=== PATIENT | female | born 1985 | race African-American/Black ===

== ENCOUNTER 2020-11-11 10:00 | Inpatient (IN) ==
[2020-11-11] MEDS ORDERED: BUPIVACAINE SPINAL 0.75% 2 ML AMP SPINAL ONE (10:21)
[2020-11-11] MEDS ORDERED: ONDANSETRON 4 MG/2 ML VIAL ONE (10:21)
[2020-11-11] MEDS ORDERED: PHENYLEPHRINE 1 MG/10 ML SYRINGE IV ONE (10:21)
[2020-11-11] MEDS ORDERED: CITRIC ACID/SODIUM CITRATE 30 ML UDCUP PO ONE (10:37)
[2020-11-11] MEDS ORDERED: FAMOTIDINE 20 MG/2 ML VIAL IV ONE (10:37)
[2020-11-11] MEDS ORDERED: ceFAZolin 3,000 MG in SYRINGE 1 EACH IV ONE (10:37)
[2020-11-11] MEDS ORDERED: OXYTOCIN/LR 20 UNIT/1,000 ML BAG IV ONE ×2 (10:41→13:30)
[2020-11-11] MEDS ORDERED: OXYTOCIN/LR 30 UNIT/1,000 ML BAG IV ONE (10:41)
[2020-11-11] MEDS ORDERED: OXYTOCIN 10 UNIT/ML VIAL IM ONE (10:41)
[2020-11-11] MEDS ORDERED: LACTATED RINGERS 1,000 ML IV SCH ×2 (11:00→13:30)
[2020-11-11 11:11] LABS: Basophils % 0.4 % (0.0-0.8); Eosinophils # 0.1 10*3/uL (0.0-0.87); Eosinophils % 1.2 % (0.00-10.9); Hematocrit 28.7 VOL% (35.7-47.0); Hemoglobin 9.4 GM/DL (12.0-16.0); Immature Granulocytes % 0.4 %; Immature Granulocytes Absolute 0.02 #; Lymphocytes # 1.3 10*3/uL (1.4-4.0); Lymphocytes % 25.7 % (21.3-54.2); Mean Corpuscular HGB Conc 32.8 GM/DL (32-36); Mean Corpuscular Volume 89.7 FL (87-102); Mean Platelet Volume 10.3 FL (9.6-12.0); Neutrophils % 64.3 % (38.7-73.9); Platelet Count 176 T/CUMM (130-400); Red Cell Distribution Width 13.4 % (9.3-17.3); White Blood Count 4.9 T/CUMM (4-12)
[2020-11-11 11:34] LABS: Albumin 2.4 G/DL (3.4-5.0); Bilirubin,Total 0.6 MG/DL (0.20-1.00); Calcium 8.4 MG/DL (8.5-10.1); Osmolality,Calculated 275.5 MOS/KG (273-304); Potassium 3.4 MMOL/L (3.5-5.1); Total Protein 6.6 G/DL (6.4-8.2)
[2020-11-11] MEDS ORDERED: miSOPROStoL 200 MCG TABLET ONE ×2 (12:02→12:07)
[2020-11-11] MEDS ORDERED: CARBOPROST TROMETHAMINE 250 MCG/ML AMP IM ONE ×2 (12:03→12:07)
[2020-11-11] MEDS ORDERED: METHYLERGONOVINE 0.2 MG/1 ML AMP ONE (12:03)
[2020-11-11 12:43] LABS: Cord Arterial Blood HCO3 22.9 MMOL/L; Cord Venous Blood HCO3 22.4 MMOL/L; Cord Venous Blood PCO2 39.8 MMHG; Cord Venous Blood PO2 40.6 MMHG
[2020-11-11] MEDS ORDERED: KETOROLAC 30 MG/1 ML VIAL ONE (12:44)
[2020-11-11] MEDS ORDERED: ACETAMINOPHEN INJ 1,000 MG/100 ML VIAL IV ONE (12:44)
[2020-11-11] MEDS ORDERED: LACTATED RINGERS 1,000 ML IV ONE (12:47)
[2020-11-11 12:51] LABS: Bilirubin,Urine Negative (Negative); Blood, Urine Negative (Negative); Glucose,Urine (UA) Negative (Negative); Ketones,Urine 80 mg/dL (Negative); Mucus,Urine Many /LPF (Occasional); Nitrite,Urine Negative (Negative); Protein,Urine 30 MG/DL; RBC,Urine 1 /HPF (0-4); Squamous Epithelial Cell,Urine Occasional /HPF (0-10); Urine Appearance CLEAR (Clear); Urine Color Yellow (Yellow); Urine Specific Gravity 1.029 (1.001-1.035)
[2020-11-11] MEDS ORDERED: SIMETHICONE CHEW 80 MG TABLET PO PRN (13:30)
[2020-11-11] MEDS ORDERED: ACETAMINOPHEN 325 MG TABLET PO PRN (13:30)
[2020-11-11] MEDS ORDERED: RHO(D) IMMUNE GLOBULIN 300 MCG SYRINGE IM ONE (13:30)
[2020-11-11] MEDS ORDERED: ONDANSETRON 4 MG/2 ML VIAL IV PRN (13:30)
[2020-11-11 14:55] LABS: Hematocrit 30.1 VOL% (35.7-47.0); Hemoglobin 9.4 GM/DL (12.0-16.0)
[2020-11-11] MEDS ORDERED: KETOROLAC 30 MG/1 ML VIAL IV SCH (19:00)
[2020-11-11] MEDS ORDERED: ACETAMINOPHEN 500 MG TABLET PO SCH (19:00)
[2020-11-11] MEDS ORDERED: POTASSIUM CHLORIDE 20 MEQ TABLET PO PRN (20:37)
[2020-11-11] MEDS: POTASSIUM CHLORIDE 20 MEQ TABLET PO PRN ×2 (20:57→23:25)
[2020-11-11] MEDS: KETOROLAC 30 MG/1 ML VIAL IV SCH (20:57)
[2020-11-11] MEDS: DOCUSATE SODIUM 100 MG CAPSULE PO SCH (20:57)
[2020-11-11] MEDS: ceFAZolin 2,000 MG/50 ML DUPLEX IV SCH (21:10)
[2020-11-11] MEDS: ACETAMINOPHEN 500 MG TABLET PO SCH (21:14)
[2020-11-11 22:10] LABS: Hematocrit 27.1 VOL% (35.7-47.0); Hemoglobin 8.6 GM/DL (12.0-16.0)
[2020-11-12] MEDS: POTASSIUM CHLORIDE 20 MEQ TABLET PO PRN (01:33)
[2020-11-12] MEDS: ACETAMINOPHEN 500 MG TABLET PO SCH ×2 (02:30→08:30)
[2020-11-12] MEDS: KETOROLAC 30 MG/1 ML VIAL IV SCH ×2 (02:43→08:15)
[2020-11-12] MEDS: ceFAZolin 2,000 MG/50 ML DUPLEX IV SCH (04:39)
[2020-11-12 07:30] LABS: Basophils % 0.3 % (0.0-0.8); Eosinophils # 0.1 10*3/uL (0.0-0.87); Eosinophils % 1.5 % (0.00-10.9); Hematocrit 28.3 VOL% (35.7-47.0); Hemoglobin 8.9 GM/DL (12.0-16.0); Immature Granulocytes % 0.4 %; Immature Granulocytes Absolute 0.03 #; Lymphocytes # 1.4 10*3/uL (1.4-4.0); Mean Corpuscular HGB Conc 31.4 GM/DL (32-36); Mean Platelet Volume 10.1 FL (9.6-12.0); Monocytes % 8.8 % (1.7-12.7); Platelet Count 174 T/CUMM (130-400); Red Blood Count 3.11 MC/CUMM (3.8-5.5); Red Cell Distribution Width 13.8 % (9.3-17.3); White Blood Count 6.7 T/CUMM (4-12)
[2020-11-12 07:50] LABS: Eosinophils 3 % (0-10); Hypochromasia 1+; Lymphocytes 23 % (20-55); Microcytosis 1+; Platelet Estimate Adequate; Segmented Neutrophils 68 % (50-85); Total Cells Counted 100
[2020-11-12] MEDS: MULTIVITAMIN (PRENATAL) TABLET PO SCH (08:05)
[2020-11-12] MEDS: FERROUS SULFATE 325 MG TABLET PO SCH ×2 (08:14→20:57)
[2020-11-12] MEDS: METOCLOPRAMIDE 10 MG TABLET PO SCH ×2 (08:14→14:42)
[2020-11-12] MEDS: DOCUSATE SODIUM 100 MG CAPSULE PO SCH ×2 (08:14→20:57)
[2020-11-12] MEDS: MAGNESIUM HYDROXIDE SUSP 30 ML UDCUP PO PRN ×2 (14:42→20:57)
[2020-11-12] MEDS: IBUPROFEN 800 MG TABLET PO PRN (23:43)
[2020-11-13] MEDS: METOCLOPRAMIDE 10 MG TABLET PO SCH ×2 (00:22→08:25)
[2020-11-13] MEDS: MAGNESIUM HYDROXIDE SUSP 30 ML UDCUP PO PRN (08:25)
[2020-11-13] MEDS: FERROUS SULFATE 325 MG TABLET PO SCH (08:25)
[2020-11-13] MEDS: DOCUSATE SODIUM 100 MG CAPSULE PO SCH (08:25)
[2020-11-13] MEDS: MULTIVITAMIN (PRENATAL) TABLET PO SCH (08:26)
[2020-11-13 10:34] VITALS: BP 121/57
[2020-11-13] MEDS: IBUPROFEN 800 MG TABLET PO PRN (12:19)
== END 2020-11-13 12:51 | disposition home or self-care (01) | DRG 539 ==
LOC: N.LDOUT 10:00 → N.LD 10:02 → N.OB 17:14
PROVIDERS: ADMIT Obstetrics & Gynecology; ATTEND Obstetrics & Gynecology

== ENCOUNTER 2022-02-17 09:12 | Observation (INO) ==
[2022-02-17] MEDS ORDERED: ONDANSETRON 4 MG/2 ML VIAL IV STA (09:40)
[2022-02-17 09:54] LABS: Bacteria,Urine Occasional /HPF (Few); Mucus,Urine Many /LPF (Occasional); RBC,Urine 1 /HPF (0-4); Squamous Epithelial Cell,Urine Occasional /HPF (0-10)
[2022-02-17 09:55] LABS: Bilirubin,Urine Negative (Negative); Blood, Urine Negative (Negative); Glucose,Urine (UA) Negative (Negative); Ketones,Urine Negative (Negative); Nitrite,Urine Negative (Negative); Protein,Urine Negative (Negative); Urine Appearance Clear (Clear); Urine Color Yellow (Yellow); Urine Specific Gravity 1.025 (1.001-1.035); Urine Urobilinogen 0.2 eU/dL (<2.0); Urine pH 6.5 (4.5-8.0)
[2022-02-17 10:10] LABS: Basophils % 0.2 % (0.0-0.8); Eosinophils # 0.1 10*3/uL (0.0-0.87); Eosinophils % 0.8 % (0.00-10.9); Hematocrit 39.9 VOL% (35.7-47.0); Hemoglobin 12.6 GM/DL (12.0-16.0); Immature Granulocytes % 0.2 %; Immature Granulocytes Absolute 0.02 #; Lymphocytes % 23.4 % (21.3-54.2); Mean Corpuscular HGB Conc 31.6 GM/DL (32-36); Mean Corpuscular Volume 88.5 FL (87-102); Monocytes # 0.4 10*3/uL (0.11-0.8); Monocytes % 4.2 % (1.7-12.7); Neutrophils % 71.2 % (38.7-73.9); Platelet Count 247 T/CUMM (130-400); Red Blood Count 4.51 MC/CUMM (3.8-5.5); Red Cell Distribution Width 13.3 % (9.3-17.3); White Blood Count 8.6 T/CUMM (4-12)
[2022-02-17 10:26] LABS: Alanine Aminotransferase 17 U/L (13-56); Albumin 3.7 G/DL (3.4-5.0); Alkaline Phosphatase 83 U/L (45-117); Aspartate Amino Transferase 15 U/L (0-37); Bilirubin,Total < 0.39 MG/DL (0.20-1.00); Blood Urea Nitrogen 14 MG/DL (7-18); Calcium 8.9 MG/DL (8.5-10.1); Carbon Dioxide 29 MMOL/L (21-32); Chloride 109 MMOL/L (98-107); Glucose 92 MG/DL (74-106); Osmolality,Calculated 279.4 MOS/KG (273-304); Potassium 3.5 MMOL/L (3.5-5.1); Sodium 140 MMOL/L (136-145); Total Protein 7.9 G/DL (6.4-8.2)
[2022-02-17] MEDS ORDERED: HYDROmorphone 1 MG/1 ML SYRINGE ONE (16:26)
[2022-02-17] MEDS ORDERED: ONDANSETRON 4 MG/2 ML VIAL ONE (16:26)
[2022-02-17] MEDS ORDERED: ACETAMINOPHEN 325 MG TABLET PO PRN (18:29)
[2022-02-17] MEDS: LACTATED RINGERS 1,000 ML IV SCH (19:59)
[2022-02-18] MEDS ORDERED: INDOCYANINE GREEN 25 MG VIAL IV ONE (08:05)
[2022-02-18] MEDS: PANTOPRAZOLE 40 MG TABLET PO SCH (08:23)
[2022-02-18] MEDS ORDERED: BUPIVACAINE MPF 0.25% 10 ML VIAL ONE (08:29)
[2022-02-18] MEDS ORDERED: LIDOCAINE 1% 5 ML VIAL ONE (08:30)
[2022-02-18] MEDS ORDERED: ROCURONIUM 50 MG/5 ML VIAL IV ONE (08:36)
[2022-02-18] MEDS ORDERED: fentaNYL 100 MCG/2 ML VIAL ONE ×2 (08:36)
[2022-02-18] MEDS ORDERED: LIDOCAINE 2% 5 ML VIAL ONE (08:36)
[2022-02-18] MEDS ORDERED: SEVOFLURANE 1 UNIT/15 MINUTE INH ONE ×6 (08:36→10:13)
[2022-02-18] MEDS ORDERED: propofoL 200 MG/20 ML VIAL IV ONE (08:36)
[2022-02-18] MEDS ORDERED: SUCCINYLCHOLINE 200 MG/10 ML VIAL ONE (08:36)
[2022-02-18] MEDS ORDERED: KETOROLAC 30 MG/1 ML VIAL ONE (09:34)
[2022-02-18] MEDS ORDERED: ACETAMINOPHEN INJ 1,000 MG/100 ML VIAL IV ONE (09:34)
[2022-02-18] MEDS ORDERED: DEXAMETHASONE 4 MG/1 ML VIAL ONE (09:34)
[2022-02-18] MEDS ORDERED: ONDANSETRON 4 MG/2 ML VIAL ONE ×2 (09:34)
[2022-02-18] MEDS ORDERED: LABETALOL 20 MG/4 ML SYRINGE IV ONE (09:42)
[2022-02-18] MEDS ORDERED: LACTATED RINGERS 1,000 ML IV ONE (10:13)
[2022-02-18] MEDS ORDERED: GLYCOPYRROLATE 0.4 MG/2 ML VIAL ONE (10:16)
[2022-02-18] MEDS ORDERED: NEOSTIGMINE 10 MG/10 ML VIAL ONE (10:16)
[2022-02-18] MEDS ORDERED: TISSUE ADHESIVE 1 EACH APPLICATOR TOP ONE (10:19)
[2022-02-18] MEDS ORDERED: MEPERIDINE 25 MG/1 ML VIAL IV PRN (10:46)
[2022-02-18] MEDS ORDERED: ONDANSETRON 4 MG/2 ML VIAL IV PRN (10:46)
[2022-02-18] MEDS: HYDROmorphone 1 MG/1 ML SYRINGE IV PRN ×3 (10:50→11:08)
[2022-02-18] MEDS: ONDANSETRON 4 MG/2 ML VIAL IV PRN ×2 (15:10→21:42)
[2022-02-18] MEDS ORDERED: HYDROmorphone 1 MG/1 ML SYRINGE IV PRN (16:01)
[2022-02-18] MEDS ORDERED: KETOROLAC 15 MG/1 ML VIAL IM PRN (16:02)
[2022-02-18] MEDS ORDERED: KETOROLAC 15 MG/1 ML VIAL IV PRN (16:18)
[2022-02-18] MEDS: LACTATED RINGERS 1,000 ML IV SCH ×2 (18:34→20:15)
[2022-02-19] MEDS: LACTATED RINGERS 1,000 ML IV SCH ×2 (02:46→14:20)
[2022-02-19] MEDS: PANTOPRAZOLE 40 MG TABLET PO SCH (09:27)
[2022-02-19 11:27] VITALS: BP 139/64
== END 2022-02-19 13:36 | disposition home or self-care (01) ==
LOC: N.ED 09:12 → N.EDINP 09:12 → N.3E 18:13
PROVIDERS: ADMIT Surgery; ATTEND Surgery